=== PATIENT | female | born 1990 | race Caucasian/White ===

== ENCOUNTER 2020-08-17 15:52 | Emergency (ER) | payer OTHER ==
[~2020-08-17] VITALS: Ht 172.7 cm; Wt 99.1 kg
--- NOTE | 2020-08-17 16:43 | PHYS DOC ---
Past History Past Medical History: Asthma, High Cholesterol, Hypothyroid, IBS, Migraines, Other (MtHFR GENE MUTATION) Additional Past Medical Histor: PCOS, DVT - LEFT KNEE, SOFI'S Past Surgical History: Other Additional Past Surgical Histo: DENTAL Alcohol Use: None Adult General Chief Complaint Chief Complaint: HEADACHE HPI HPI Patient is a 29-year-old female presenting for headache. This is an acute on chronic issue for her. She is well-established in outpatient setting with primary care physician and neurologist. Has history of migraine with atypical features. Reports current headache feels different than past, started approximately 12 hours ago and described as a "thunderclap" headache that started without any prodromal symptoms. This is been ongoing for past 12 hours and getting worse and worse. She has history of DVT and was on previous anticoagulation, states she "I think I have the MTHFR gene mutation" but is not on any anticoagulation currently. She has prior head imaging such as CT and MRI with no known aneurysms or any other notable abnormalities. States headache is all over but maximum area of intensity is right occiput and temporal regions. She has nondescript vision changes. No recent fever, chills, travel, chest pain, shortness of breath, abdominal pain, bladder or bowel incontinence, no motor or sensory function changes, no neuro deficits Review of Systems Review of Systems Fourteen body systems of review of systems have been reviewed. See HPI for pertinent positives and negative responses, other fajardo all other systems are negative, non-pertinent or non-contributory Allergies Allergies Allergies Coded Allergies Type Severity Reaction Last Updated Verified buspirone Allergy Intermediate Hives 08/17/20 Yes clonazepam Allergy Intermediate Hives 08/17/20 Yes metoprolol Allergy Intermediate Hives 08/17/20 Yes propranolol Allergy Intermediate Hives 08/17/20 Yes venlafaxine Allergy Intermediate Hives 08/17/20 Yes Physical Exam Physical Exam Constitutional: Well developed, well nourished, no acute distress, non-toxic appearance. HENT: Normocephalic, atraumatic, bilateral external ears normal, oropharynx moist, no oral exudates, nose normal. Eyes: PERRLA, EOMI, conjunctiva normal, no discharge. Neck: Normal range of motion, no tenderness, supple, no stridor. Cardiovascular: Heart rate regular, sinus rhythm, no murmurs rubs or gallops Lungs & Thorax: Bilateral breath sounds clear to auscultation Abdomen: Bowel sounds normal, soft, no tenderness, no masses, no pulsatile masses. Nonsurgical abdomen, no peritoneal signs Skin: Warm, dry, no erythema, no rash. Back: No tenderness, no CVA tenderness. Extremities: No tenderness, no cyanosis, no clubbing, ROM intact, no edema. Neurologic: Alert and oriented X 3, cranial nerves II through XII intact, gait unremarkable, normal motor & sensory function, no focal deficits noted. Psychologic: Affect normal, judgement normal, mood normal. Current Patient Data Vital Signs Vital Signs Date Time Temp Pulse Resp B/P (MAP) Pulse Ox O2 Delivery O2 Flow Rate FiO2 08/17/20 16:09 97.8 90 14 123/67 (85) 100 08/17/20 16:03 Room Air Lab Results Laboratory Tests Test 08/17/20 16:35 08/17/20 16:50 Bedside Urine HCG, Qualitative hcg negative White Blood Count 7.9 x10^3/uL Red Blood Count 4.84 x10^6/uL Hemoglobin 14.1 g/dL Hematocrit 42.5 % Mean Corpuscular Volume 88 fL Mean Corpuscular Hemoglobin 29 pg Mean Corpuscular Hemoglobin Concent 33 g/dL Red Cell Distribution Width 13.4 % Platelet Count 244 x10^3/uL Neutrophils (%) (Auto) 59 % Lymphocytes (%) (Auto) 32 % Monocytes (%) (Auto) 6 % Eosinophils (%) (Auto) 3 % Basophils (%) (Auto) 1 % Neutrophils # (Auto) 4.6 x10^3uL Lymphocytes # (Auto) 2.5 x10^3/uL Monocytes # (Auto) 0.5 x10^3/uL Eosinophils # (Auto) 0.2 x10^3/uL Basophils # (Auto) 0.0 x10^3/uL Sodium Level 137 mmol/L Potassium Level 3.9 mmol/L Chloride Level 102 mmol/L Carbon Dioxide Level 28 mmol/L Anion Gap 7 Blood Urea Nitrogen 7 mg/dL Creatinine 0.8 mg/dL Estimated GFR (Cockcroft-Gault) 84.8 BUN/Creatinine Ratio 9 Glucose Level 88 mg/dL Calcium Level 9.2 mg/dL Total Bilirubin 1.2 mg/dL Aspartate Amino Transf (AST/SGOT) 30 U/L Alanine Aminotransferase (ALT/SGPT) 72 U/L Alkaline Phosphatase 63 U/L Troponin I Quantitative < 0.017 ng/mL Total Protein 7.9 g/dL Albumin 4.3 g/dL Albumin/Globulin Ratio 1.2 Current Medications Medications (Trade) Dose Ordered Sig/Ruth Route PRN Reason Start Time Stop Time Status Last Admin Dose Admin Iohexol (Omnipaque 350 Mg/ml) 100 ml 1X ONCE IV 08/17/20 16:45 08/17/20 16:47 DC 08/17/20 16:53 Ketorolac Tromethamine (Toradol 15mg Vial) 15 mg 1X ONCE IVP 08/17/20 18:00 08/17/20 18:01 DC 08/17/20 18:05 EKG EKG [] Radiology/Procedures Radiology/Procedures Exam: CTA head INDICATION: Tender clap headache TECHNIQUE: Sequential axial images through the head obtained following the administration of 75 mL of Isovue-370 IV contrast. Sagittal and coronal reformatted images were reconstructed from the axial data and reviewed. 3-D reformatted images were reconstructed from the axial data and reviewed. Comparisons: CT head without contrast same day FINDINGS: Right internal carotid artery is patent without evidence of stenosis, occlusion or aneurysm. Right MCA is patent. Right PEDRO is patent. Left internal carotid artery is patent without evidence of stenosis, occlusion or aneurysm. Left MCA is patent. Left PEDRO is patent. Basilar artery is patent without evidence of stenosis, occlusion or aneurysm. supervisor precision optical elements are patent bilaterally. IMPRESSION: Patent intracranial arterial vasculature without evidence of stenosis, occlusion or aneurysm. Exposure: One or more of the following in the visualized dose reduction techniques were utilized for this examination: 1. Automated exposure control 2. Adjustment of the MA and/or KV according to patient size 3. Use of iterative of reconstructive technique Electronically signed by: Keith Dorsey MD (08/17/2020 5:16 PM) [facility] //////////////////// Exam: CT head INDICATION: Thunderclap headache TECHNIQUE: Sequential axial images through the head were obtained without the administration of IV contrast. Comparisons: None FINDINGS: No focal parenchymal lesion or hemorrhage is identified. There is no midline shift or sulcal effacement. No acute vascular territory infarction is identified. Miner-white distinction is preserved. The ventricular system is within normal limits without compression hydrocephalus. The basal cisterns are well maintained. The visualized portions of the paranasal sinuses and mastoid air cells are well-pneumatized. No acute fractures. IMPRESSION: No acute intracranial abnormality. Exposure: One or more of the following in the visualized dose reduction techniques were utilized for this examination: 1. Automated exposure control 2. Adjustment of the MA and/or KV according to patient size Use of iterative of reconstructive technique Electronically signed by: Keith Dorsey MD (08/17/2020 5:11 PM) [facility] Heart Score C/O Chest Pain: No HEART Score for Chest Pain: HEART Score for Chest Pain Response (Comments) Value History Slighlty/Non-Suspicious 0 Age < 45 0 Risk Factors No Risk Factors 0 Total 0 Risk Factors: Risk Factors: DM, Current or recent (<one month) smoker, HTN, HLP, family history of CAD, obesity. Risk Scores: Risk Factors: DM, Current or recent (<one month) smoker, HTN, HLP, family history of CAD, obesity. Course & Med Decision Making Course & Med Decision Making Hemodynamically stable patient with HPI concerning for SAH versus other intracranial abnormality. Physical examination grossly unremarkable. Comprehensive ER work-up obtained and grossly unremarkable Disclosed entirety of ER course with patient. Patient states that she just wanted "reassurance "by visit today. She has visit with neurologist this upcom ing week to reevaluate her ongoing headaches and for continued outpatient care and intervention as indicated Patient requesting Toradol shot as this is helped prior headaches, this was administered IV. Also offered patient a short dose Medrol steroid pack for headache relief, I feel this is appropriate as patient has allergies to other medications that would be used for abortive therapy. She does not want to stay any longer for any IV fluid rehydration or other ER modalities As such, strict return precautions were discussed with good understanding by patient, all questions and concerns addressed prior to ER departure Dragon Disclaimer Dragon Disclaimer This electronic medical record was generated, in whole or in part, using a voice recognition dictation system. Departure Departure: Impression: Primary Impression: Headache Disposition: 01 DC HOME SELF CARE/HOMELESS Condition: STABLE Referrals: ASTER PHELPS MD (PCP) Patient Instructions: General Headache Without Cause Additional Instructions: You were seen for a headache. Your symptoms improved with an NSAID. You are also given a prescription for short-term steroid use in outpatient setting. As discussed, you need to follow-up with your neurologist in outpatient setting for repeat evaluation. There might be consideration for preventative/prophylactic medications for your migraine with atypical features. You should return to the ED if you develop worsening pain, vision change, numbness, tingling, weakness, vomiting, fever, neck pain, or any other new or concerning symptoms. Scripts Methylprednisolone (MEDROL) 4 Mg Tab.ds.pk 1 PKG PO UD for migraine, #1 PKG Prov: ELIF AHMADI DO 08/17/20 ELIF AHMADI DO Aug 17, 2020 16:43
[2020-08-17] MEDS ORDERED: IOHEXOL 350 MG/ML 100 ML VIAL. IV ONE (16:45)
--- NOTE | 2020-08-17 17:14 | RAD ---
Exam: CT head INDICATION: Thunderclap headache TECHNIQUE: Sequential axial images through the head were obtained without the administration of IV co ntrast. Comparisons: None FINDINGS: No focal parenchymal lesion or hemorrhage is identified. There is no midline shift or sulcal effaceme nt. No acute vascular territory infarction is identified. Miner-white distinction is preserved. The ventricular system is within normal limits without compression hydrocephalus. The basal cisterns are well maintained. The visualized portions of the paranasal sinuses and mastoid air cells are well-pneumatized. No acute fractures. IMPRESSION: No acute intracranial abnormality. Exposure: One or more of the following in the visualized dose reduction techniques were utilized for this examination: 1. Automated exposure control 2. Adjustment of the MA and/or KV according to patient size Use of iterative of reconstructive technique Electronically signed by: Keith Dorsey MD (08/17/2020 5:11 PM) [facility]
--- NOTE | 2020-08-17 17:18 | RAD ---
Exam: CTA head INDICATION: Tender clap headache TECHNIQUE: Sequential axial images through the head obtained following the administration of 75 mL of Isovue-370 IV contrast. Sagittal and coronal reformatted images were reconstructed from the axial da ta and reviewed. 3-D reformatted images were reconstructed from the axial data and reviewed. Comparisons: CT head without contrast same day FINDINGS: Right internal carotid artery is patent without evidence of stenosis, occlusion or aneurysm. Right MC A is patent. Right PEDRO is patent. Left internal carotid artery is patent without evidence of stenosis, occlusion or aneurysm. Left MCA is patent. Left PEDRO is patent. Basilar artery is patent without evidence of stenosis, occlusion or aneurysm. training technician are patent bilater ally. IMPRESSION: Patent intracranial arterial vasculature without evidence of stenosis, occlusion or aneurysm. Exposure: One or more of the following in the visualized dose reduction techniques were utilized for this examination: 1. Automated exposure control 2. Adjustment of the MA and/or KV according to patient size 3. Use of iterative of reconstructive technique Electronically signed by: Keith Dorsey MD (08/17/2020 5:16 PM) [facility]
[2020-08-17 17:31] LABS: BASO % 1 % (0-3); CALCIUM 9.2 mg/dL (8.5-10.1); CREATININE 0.8 mg/dL (0.6-1.0); EOS # 0.2 x10^3/uL (0.0-0.7); EOS % 3 % (0-3); GFR 84.8; HEMATOCRIT 42.5 % (36.0-47.0); HEMOGLOBIN 14.1 g/dL (12.0-15.5); LYMPH # 2.5 x10^3/uL (1.0-4.8); LYMPH % 32 % (24-48); MEAN CORPUSCULAR HEMOGLOBIN 29 pg (25-35); MEAN CORPUSCULAR HGB CONC 33 g/dL (31-37); MEAN CORPUSCULAR VOLUME 88 fL (79-100); MONO # 0.5 x10^3/uL (0.0-1.1); MONO % 6 % (0-9); NEUT # 4.6 x10^3uL (1.8-7.7); NEUT % 59 % (31-73); PLATELET COUNT 244 x10^3/uL (140-400); POTASSIUM 3.9 mmol/L (3.5-5.1); RED BLOOD COUNT 4.84 x10^6/uL (3.50-5.40); RED CELL DISTRIBUTION WIDTH 13.4 % (11.5-14.5); WHITE BLOOD COUNT 7.9 x10^3/uL (4.0-11.0)
[2020-08-17 17:36] LABS: ALBUMIN 4.3 g/dL (3.4-5.0); ALBUMIN/GLOBULIN RATIO 1.2 (1.0-1.7); TOTAL BILIRUBIN 1.2 mg/dL (0.2-1.0); TOTAL PROTEIN 7.9 g/dL (6.4-8.2)
[2020-08-17] MEDS ORDERED: KETOROLAC 15 MG/ML VIAL. IVP ONE (18:00)
[2020-08-17] MEDS ORDERED: METH4TAB2 PO (18:04)
[2020-08-17 18:14] VITALS: BP 108/68
--- NOTE | 2020-08-17 19:32 | EKG ---
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
[2020-08-18] MEDS ORDERED: atenolol (23:46)
[2020-08-18] MEDS ORDERED: loratadine (23:46)
[2020-08-18] MEDS ORDERED: protonix (23:46)
[2020-08-18] MEDS ORDERED: xanax (23:46)
== END 2020-08-17 18:14 | disposition home or self-care (01) ==
LOC: ER 15:52
DX: G43.909 Migraine, unspecified, not intractable, without status migrainosus (principal); J45.909 Unspecified asthma, uncomplicated; E78.00 Pure hypercholesterolemia, unspecified; E03.9 Hypothyroidism, unspecified; K58.9 Irritable bowel syndrome, unspecified; Z88.1 Allergy status to other antibiotic agents; Z88.8 Allergy status to other drugs, medicaments and biological substances
CPT/HCPCS: 36415; 70450; 70496; 80053; 81025; 84484; 85025; 93005; 96374; 99285; J1885; Q9967

== ENCOUNTER 2020-08-18 23:33 | Emergency (ER) | payer OTHER ==
[~2020-08-18] VITALS: Ht 167.6 cm; Wt 99.7 kg
[~2020-08-18 23:33] MED LIST: METH4TAB2 PO
[2020-08-18] MEDS ORDERED: loratadine (23:46)
[2020-08-18] MEDS ORDERED: atenolol (23:46)
[2020-08-18] MEDS ORDERED: xanax (23:46)
[2020-08-18] MEDS ORDERED: protonix (23:46)
[2020-08-19 00:30] LABS: BACTERIA,URINE FEW /HPF (0-FEW); BILIRUBIN,URINE NEG (NEG); CLARITY,URINE CLEAR; COLOR,URINE YELLOW; GLUCOSE,URINE NEG (NEG); NITRITE,URINE NEG (NEG); RBC,URINE 0 /HPF (0-2); SQUAMOUS EPITHELIAL CELL,UR OCC /LPF; UROBILINOGEN,URINE 0.2 mg/dL (0.2 mg/dL); WBC,URINE OCC /HPF (0-4)
--- NOTE | 2020-08-19 00:57 | PHYS DOC ---
Past History Past Medical History: Asthma, High Cholesterol, Hypothyroid, IBS, Migraines, Other Additional Past Medical Histor: PCOS, DVT - LEFT KNEE, SOFI'S Past Surgical History: Other Additional Past Surgical Histo: DENTAL Alcohol Use: None Adult General Chief Complaint Chief Complaint: MULTIPLE COMPLAINTS HPI HPI Patient is an 18-year-old female who presents to emergency department with a chief complaint of fevers at home and feeling funny. States he was in the emergency department yesterday with a headache, as her neurologist told her to come to the emergency department with her headache. Stated she got the feeling better while in the ED and was discharged home. States she called her neurologist today to update on her CT angiography of head and neck that was reassuring. States that today she was coming into the emergency department because she think she had a fever at home, because she felt warm but did not actually measure her temperature. States that she just felt weird but could not elaborate. Denies any new onset headaches, changes in vision, chest pain, shortness of breath, abdominal pain, nausea, vomiting, dysuria, hematuria or blood in the stool. Denies any recent travel, measured fevers, known ill contacts. Denies any numbness/weakness/tingling or inability to ambulate. Review of Systems Review of Systems Review of systems otherwise unremarkable except noted in HPI Allergies Allergies Allergies Coded Allergies Type Severity Reaction Last Updated Verified buspirone Allergy Intermediate Hives 08/17/20 Yes clonazepam Allergy Intermediate Hives 08/17/20 Yes metoclopramide Allergy Intermediate 08/18/20 Yes metoprolol Allergy Intermediate Hives 08/17/20 Yes propranolol Allergy Intermediate Hives 08/17/20 Yes venlafaxine Allergy Intermediate Hives 08/17/20 Yes Physical Exam Physical Exam Constitutional: Well developed, well nourished, no acute distress, non-toxic appearance. [] HENT: Normocephalic, atraumatic, bilateral external ears normal, oropharynx moist, no oral exudates, nose normal. [] Eyes: conjunctiva normal, no discharge. [] Neck: Normal range of motion, Cardiovascular:Heart rate regular rhythm, no murmur [] Lungs & Thorax: Bilateral breath sounds clear to auscultation [] Abdomen: soft,no tenderness no masses, no pulsatile masses. [] Skin: Warm, dry, no erythema, no rash. [] Back: , no CVA tenderness. [] Extremities: No tenderness, no cyanosis, no clubbing, ROM intact, no edema. [] Neurologic: Alert and oriented X 3, normal motor function, normal sensory function, no focal deficits noted. [] Psychologic: Affect normal, judgement normal, mood normal. [] Current Patient Data Lab Results Laboratory Tests Test 08/18/20 23:49 08/18/20 23:57 Urine Collection Type Unknown Urine Color Yellow Urine Clarity Clear Urine pH 5.5 Urine Specific [place] 1.015 Urine Protein Neg (NEG-TRACE) Urine Glucose (UA) Neg mg/dL (NEG) Urine Ketones (Stick) Neg mg/dL (NEG) Urine Blood Neg (NEG) Urine Nitrite Neg (NEG) Urine Bilirubin Neg (NEG) Urine Urobilinogen Dipstick 0.2 mg/dL (0.2 mg/dL) Urine Leukocyte Esterase Neg (NEG) Urine RBC 0 /HPF (0-2) Urine WBC Occ /HPF (0-4) Urine Squamous Epithelial Cells Occ /LPF Urine Bacteria Few /HPF (0-FEW) Troponin I Quantitative < 0.017 ng/mL (0-0.055) EKG EKG [] Radiology/Procedures Radiology/Procedures [] Heart Score C/O Chest Pain: No Risk Factors: Risk Factors: DM, Current or recent (<one month) smoker, HTN, HLP, family history of CAD, obesity. Risk Scores: Risk Factors: DM, Current or recent (<one month) smoker, HTN, HLP, family history of CAD, obesity. Course & Med Decision Making Course & Med Decision Making [] Dragon Disclaimer Dragon Disclaimer This electronic medical record was generated, in whole or in part, using a voice recognition dictation system. Departure Departure: Impression: Primary Impression: Fatigue Additional Impression: Lightheadedness Disposition: 01 DC HOME SELF CARE/HOMELESS Condition: GOOD Referrals: ASTER PHELPS MD (PCP) Patient Instructions: Fatigue, Migraine Headache Additional Instructions: Please read all the attached information carefully. You can use Tylenol, ibuprofen and Benadryl at home as needed for migraine control. Please call your primary care physician first thing Thursday morning to update on ED visit and set up a follow-up as needed. Please come back to the ED immediately with new or concerning symptoms. Problem Qualifiers LUPILLO DUBON MD Aug 19, 2020 00:57
[2020-08-19 01:15] VITALS: BP 113/71
--- NOTE | 2020-08-19 03:21 | EKG ---
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
== END 2020-08-19 01:33 | disposition home or self-care (01) ==
LOC: ER 23:33
DX: R53.83 Other fatigue (principal); R42 Dizziness and giddiness; R50.9 Fever, unspecified; G43.909 Migraine, unspecified, not intractable, without status migrainosus; J45.909 Unspecified asthma, uncomplicated; E78.00 Pure hypercholesterolemia, unspecified; E03.9 Hypothyroidism, unspecified; K58.9 Irritable bowel syndrome, unspecified; Z86.718 Personal history of other venous thrombosis and embolism; Z88.8 Allergy status to other drugs, medicaments and biological substances
CPT/HCPCS: 36415; 81001; 84484; 93005; 99284

== ENCOUNTER 2020-09-06 04:00 | Emergency (ER) | payer OTHER ==
[~2020-09-06] VITALS: Ht 167.6 cm; Wt 99.7 kg
[~2020-09-06 04:00] MED LIST changes: +atenolol; +loratadine; +protonix; +xanax
--- NOTE | 2020-09-06 04:23 | EKG ---
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
--- NOTE | 2020-09-06 04:24 | PHYS DOC ---
Past History Past Medical History: Anxiety, Asthma, DVT, GERD, High Cholesterol, Hypothyroid, IBS, Migraines, Other Additional Past Medical Histor: PCOS, SOFI'S Past Surgical History: Other Additional Past Surgical Histo: DENTAL Alcohol Use: None General Adult EDM: Chief Complaint: CHEST PAIN HPI: HPI: 29-year-old female presents with chest pain and left foot tingling. Patient states that she has been having central chest pressure since 10:30 PM last night, 6 hours ago. The chest pain is moderate in intensity and constant. She was not doing anything when it started. She denies shortness of breath. She also tells me that she has been having pain and tingling in her left foot for the last 2 days. Patient has a history of DVT in the past when she was on control and was a smoker. The patient had a recent echocardiogram which was reported to be normal. Review of Systems: Review of Systems: Constitutional: Denies fever or chills Eyes: Denies change in visual acuity HENT: Denies nasal congestion or sore throat Respiratory: Denies cough or shortness of breath Cardiovascular: Chest pain GI: Denies abdominal pain, nausea, vomiting, bloody stools or diarrhea : Denies dysuria Musculoskeletal: Left lower leg pain Integument: Denies rash Neurologic: Denies headache, focal weakness or sensory changes Endocrine: Denies polyuria or polydipsia Lymphatic: Denies swollen glands Psychiatric: Denies depression or anxiety Allergies: Allergies: Allergies Coded Allergies Type Severity Reaction Last Updated Verified buspirone Allergy Intermediate Hives 08/17/20 Yes clonazepam Allergy Intermediate Hives 08/17/20 Yes metoclopramide Allergy Intermediate 08/18/20 Yes metoprolol Allergy Intermediate Hives 08/17/20 Yes propranolol Allergy Intermediate Hives 08/17/20 Yes venlafaxine Allergy Intermediate Hives 08/17/20 Yes Physical Exam: PE: Constitutional: Well developed, well nourished, obese, no acute distress, non- toxic appearance. [] HENT: Normocephalic, atraumatic, bilateral external ears normal, oropharynx moist, no oral exudates, nose normal. [] Eyes: PERRLA, EOMI, conjunctiva normal, no discharge. [] Neck: Normal range of motion, no tenderness, supple, no stridor. [] Cardiovascular: Heart rate 89, regular rhythm, no murmur [] Lungs & Thorax: Bilateral breath sounds clear to auscultation [] Abdomen: Bowel sounds normal, soft, no tenderness, no masses, no pulsatile masses. [] Skin: Warm, dry, no erythema, no rash. [] Back: No tenderness, no CVA tenderness. [] Extremities: No tenderness, no cyanosis, no clubbing, ROM intact, no edema. [] Neurologic: Alert and oriented X 3, normal motor function, normal sensory function, no focal deficits noted. [] Psychologic: Affect normal, judgement normal, mood concerned. [] Current Patient Data: Vital Signs: Vital Signs Date Time Temp Pulse Resp B/P (MAP) Pulse Ox O2 Delivery O2 Flow Rate FiO2 09/06/20 04:00 98.2 93 18 134/87 (103) 100 Room Air EKG: EKG: Sinus rhythm, rate 89, normal axis, no ST elevations or depressions. [] Radiology/Procedures: Radiology/Procedures: [] Impressions: Left lower extremity venous Doppler dated 09/06/2020. No comparison available. CLINICAL INDICATION: Calf pain. FINDINGS: Grayscale, color-flow and spectral waveform analysis performed to include the deep venous system of the left lower extremity. There is normal compressibility, phasicity and augmentation of flow throughout. No filling defects are seen. IMPRESSION: No evidence of left lower extremity deep vein thrombosis. Electronically signed by: Jacob Smiley MD (09/06/2020 5:48 AM) [facility] [place] DICTATED AND SIGNED BY: JACOB SMILEY MD DATE: 09/06/20 0548 CC: GAURAV DURÁN DO; ASTER PHELPS MD ~MTH0 0 Heart Score: C/O Chest Pain: Yes HEART Score for Chest Pain: HEART Score for Chest Pain Response (Comments) Value History Slighlty/Non-Suspicious 0 ECG Normal 0 Age < 45 0 Risk Factors 1 or 2 Risk Factors 1 Troponin < Normal Limit 0 Total 1 Risk Factors: Risk Factors: DM, Current or recent (<one month) smoker, HTN, HLP, family history of CAD, obesity. Risk Scores: Score 0 - 3: 2.5% MACE over next 6 weeks - Discharge Home Score 4 - 6: 20.3% MACE over next 6 weeks - Admit for Clinical Observation Score 7 - 10: 72.7% MACE over next 6 weeks - Early Invasive Strategies Course & Med Decision Making: Course & Med Decision Making Pertinent Labs and Imaging studies reviewed. (See chart for details) The patient's labs are unremarkable. Her EKG is unremarkable. Her troponin is negative. Her lower extremity ultrasound is negative for DVT. Her chest x-ray is unremarkable. The patient's chest pain does not appear to be cardiopulmonary in nature. She does not appear to have any life-threatening illness at this time. I have advised that she follow-up with her primary care physician for her leg pain and other potential causes for chest pain. She is stable for discharge at this time. [] Dragon Disclaimer: Dragon Disclaimer: This electronic medical record was generated, in whole or in part, using a voice recognition dictation system. Departure Departure: Impression: Primary Impression: Chest pain Qualified Codes: R07.89 - Other chest pain Additional Impression: Left leg pain Disposition: HOME / SELF CARE / HOMELESS Condition: STABLE Referrals: ASTER PHELPS MD (PCP) Patient Instructions: Chest Pain (Nonspecific), [id number] GAURAV DURÁN DO Sep 06, 2020 04:24
[2020-09-06 04:28] LABS: BASO # 0.1 x10^3/uL (0.0-0.2); BASO % 1 % (0-3); EOS # 0.2 x10^3/uL (0.0-0.7); EOS % 2 % (0-3); HEMOGLOBIN 13.2 g/dL (12.0-15.5); LYMPH # 3.3 x10^3/uL (1.0-4.8); LYMPH % 34 % (24-48); MEAN CORPUSCULAR HEMOGLOBIN 30 pg (25-35); MEAN CORPUSCULAR HGB CONC 34 g/dL (31-37); MEAN CORPUSCULAR VOLUME 87 fL (79-100); MONO # 0.6 x10^3/uL (0.0-1.1); MONO % 6 % (0-9); NEUT # 5.6 x10^3uL (1.8-7.7); NEUT % 57 % (31-73); PLATELET COUNT 262 x10^3/uL (140-400); RED BLOOD COUNT 4.47 x10^6/uL (3.50-5.40); WHITE BLOOD COUNT 9.8 x10^3/uL (4.0-11.0)
[2020-09-06 04:36] LABS: CALCIUM 8.9 mg/dL (8.5-10.1); CREATININE 0.7 mg/dL (0.6-1.0); GFR 98.9; POTASSIUM 3.5 mmol/L (3.5-5.1)
[2020-09-06 04:42] LABS: ALBUMIN 3.9 g/dL (3.4-5.0); TOTAL BILIRUBIN 0.8 mg/dL (0.2-1.0); TOTAL PROTEIN 7.8 g/dL (6.4-8.2)
[2020-09-06 05:00] LABS: BACTERIA,URINE 0 /HPF (0-FEW); BILIRUBIN,URINE NEG (NEG); CLARITY,URINE CLEAR; COLOR,URINE YELLOW; GLUCOSE,URINE NEG (NEG); NITRITE,URINE NEG (NEG); RBC,URINE 0 /HPF (0-2); SQUAMOUS EPITHELIAL CELL,UR MOD /LPF; UROBILINOGEN,URINE 0.2 mg/dL (0.2 mg/dL); WBC,URINE OCC /HPF (0-4)
[2020-09-06 05:03] LABS: BARBITURATES NEG (NEG); BENZODIAZEPINES POS (NEG); CANNABINOIDS NEG (NEG); COCAINE NEG (NEG); METHADONE NEG (NEG); OPIATES NEG (NEG); PHENCYCLIDINE NEG (NEG)
[2020-09-06 05:08] LABS: AMPHETAMINE/METHAMPHETAMINE NEG (NEG)
--- NOTE | 2020-09-06 05:51 | RAD ---
Left lower extremity venous Doppler dated 09/06/2020. No comparison available. CLINICAL INDICATION: Calf pain. FINDINGS: Grayscale, color-flow and spectral waveform analysis performed to include the deep venous system of t he left lower extremity. There is normal compressibility, phasicity and augmentation of flow througho ut. No filling defects are seen. IMPRESSION: No evidence of left lower extremity deep vein thrombosis. Electronically signed by: Jacob Smiley MD (09/06/2020 5:48 AM) [facility]
--- NOTE | 2020-09-06 06:29 | RAD ---
Single view chest dated 09/06/2020: No comparison available. Clinical Indication: Chest pain. Findings: Single upright portable exam of the chest was performed. Heart size and mediastinal contours are with in normal limits. Lungs are clear. No consolidation or pleural effusion. No pneumothorax. Impression:: No acute radiographic abnormality. Electronically signed by: Jacob Smiley MD (09/06/2020 6:27 AM) [facility]
[2020-09-06 06:38] VITALS: BP 127/77
== END 2020-09-06 06:35 | disposition home or self-care (01) ==
LOC: ER 04:00
DX: R07.89 Other chest pain (principal); M79.662 Pain in left lower leg; R20.2 Paresthesia of skin; J45.909 Unspecified asthma, uncomplicated; K21.9 Gastro-esophageal reflux disease without esophagitis; E78.00 Pure hypercholesterolemia, unspecified; E03.9 Hypothyroidism, unspecified; K58.9 Irritable bowel syndrome, unspecified; G43.909 Migraine, unspecified, not intractable, without status migrainosus; Z86.718 Personal history of other venous thrombosis and embolism; Z88.8 Allergy status to other drugs, medicaments and biological substances
CPT/HCPCS: 36415; 71045; 80053; 80307; 81001; 81025; 84484; 85025; 93005; 93971; 99285

== ENCOUNTER 2020-09-24 22:12 | Emergency (ER) | payer OTHER ==
[~2020-09-24] VITALS: Ht 167.6 cm; Wt 96.7 kg
--- NOTE | 2020-09-24 22:41 | PHYS DOC ---
Past History Past Medical History: Anxiety, Asthma, GERD, High Cholesterol, Hypothyroid, IBS, Migraines, Other Additional Past Medical Histor: PCOS, SOFI'S Past Surgical History: Other Additional Past Surgical Histo: DENTAL Alcohol Use: None Adult General Chief Complaint Chief Complaint: CHEST PAIN HPI HPI Patient is a 29-year-old female presenting for chest pain.Reports she had similar diffuse feelings of chest pain that arose while at rest approximately 2 weeks ago, went to [facility] emergency room and had comprehensive work-up that was grossly negative. She is concerned because she was told her D-dimer was "one-point off needing a CT scan" and that her liver enzymes were elevated. She has not followed up in the outpatient setting since then. Reports recurrence of chest pain this evening while at rest. She is concerned about recent findings. She has a pearler and has had provocative cardiac testing in outpatient setting, she is scheduled to see them this upcoming Thursday and have loop recorder inserted for monitoring purposes. Nothing known makes chest pain better or worse. Described as overall tightness without radiation to other portions of body. Pain has been constant since onset. Review of Systems Review of Systems Fourteen body systems of review of systems have been reviewed. See HPI for pertinent positives and negative responses, other fajardo all other systems are negative, non-pertinent or non-contributory Allergies Allergies Allergies Coded Allergies Type Severity Reaction Last Updated Verified buspirone Allergy Intermediate Hives 09/24/20 Yes clonazepam Allergy Intermediate Hives 09/24/20 Yes metoclopramide Allergy Intermediate 09/24/20 Yes metoprolol Allergy Intermediate Hives 09/24/20 Yes propranolol Allergy Intermediate Hives 09/24/20 Yes venlafaxine Allergy Intermediate Hives 09/24/20 Yes Physical Exam Physical Exam Constitutional: Well developed, well nourished, no acute distress, non-toxic appearance. HENT: Normocephalic, atraumatic, bilateral external ears normal, oropharynx moist, no oral exudates, nose normal. Eyes: PERRLA, EOMI, conjunctiva normal, no discharge. Neck: Normal range of motion, no tenderness, supple, no stridor. Cardiovascular: Heart rate regular, sinus rhythm, no murmurs rubs or gallops Lungs & Thorax: Bilateral breath sounds clear to auscultation Abdomen: Bowel sounds normal, soft, no tenderness, no masses, no pulsatile masses. Nonsurgical abdomen, no peritoneal signs Skin: Warm, dry, no erythema, no rash. Back: No tenderness, no CVA tenderness. Extremities: No tenderness, no cyanosis, no clubbing, ROM intact, no edema. Negative Homans' sign to bilateral lower extremities, bilateral lower extremities equal size Neurologic: Alert and oriented X 3, grossly normal motor & sensory function, no focal deficits noted. Psychologic: Odd affect, judgement normal, mood normal. Current Patient Data Vital Signs Vital Signs Date Time Temp Pulse Resp B/P (MAP) Pulse Ox O2 Delivery O2 Flow Rate FiO2 09/24/20 22:27 97.7 98 18 130/77 (94) 100 Room Air Lab Results Laboratory Tests Test 09/24/20 22:40 White Blood Count 8.0 x10^3/uL Red Blood Count 4.70 x10^6/uL Hemoglobin 13.6 g/dL Hematocrit 41.0 % Mean Corpuscular Volume 87 fL Mean Corpuscular Hemoglobin 29 pg Mean Corpuscular Hemoglobin Concent 33 g/dL Red Cell Distribution Width 13.4 % Platelet Count 242 x10^3/uL Neutrophils (%) (Auto) 60 % Lymphocytes (%) (Auto) 31 % Monocytes (%) (Auto) 5 % Eosinophils (%) (Auto) 3 % Basophils (%) (Auto) 1 % Neutrophils # (Auto) 4.8 x10^3uL Lymphocytes # (Auto) 2.5 x10^3/uL Monocytes # (Auto) 0.4 x10^3/uL Eosinophils # (Auto) 0.2 x10^3/uL Basophils # (Auto) 0.0 x10^3/uL D-Dimer (Alessandra) 0.19 mg/L Sodium Level 140 mmol/L Potassium Level 3.8 mmol/L Chloride Level 105 mmol/L Carbon Dioxide Level 27 mmol/L Anion Gap 8 Blood Urea Nitrogen 8 mg/dL Creatinine 0.9 mg/dL Estimated GFR (Cockcroft-Gault) 74.0 BUN/Creatinine Ratio 9 Glucose Level 131 mg/dL Calcium Level 9.3 mg/dL Total Bilirubin 0.4 mg/dL Aspartate Amino Transf (AST/SGOT) 29 U/L Alanine Aminotransferase (ALT/SGPT) 61 U/L Alkaline Phosphatase 70 U/L Troponin I Quantitative < 0.017 ng/mL Total Protein 7.7 g/dL Albumin 3.7 g/dL Albumin/Globulin Ratio 0.9 Current Medications Medications (Trade) Dose Ordered Sig/Ruth Route PRN Reason Start Time Stop Time Status Last Admin Dose Admin Aspirin (Fausto Aspirin) 325 mg 1X ONCE PO 09/24/20 22:45 09/24/20 22:46 DC 09/24/20 22:49 EKG EKG EKG ordered and interpreted by myself at 2222 hrs. as sinus rhythm at 96 bpm, unremarkable intervals, no axis deviation, no acute ischemic findings EKG ordered and interpreted by myself at 2332 hrs. as sinus rhythm at 99 bpm, unremarkable intervals, no axis deviation, no acute ischemic findings, no STEMI Radiology/Procedures Radiology/Procedures [] Heart Score C/O Chest Pain: Yes HEART Score for Chest Pain: HEART Score for Chest Pain Response (Comments) Value History Slighlty/Non-Suspicious 0 ECG Normal 0 Age < 45 0 Risk Factors No Risk Factors 0 Troponin < Normal Limit 0 Total 0 Risk Factors: Risk Factors: DM, Current or recent (<one month) smoker, HTN, HLP, family history of CAD, obesity. Risk Scores: Risk Factors: DM, Current or recent (<one month) smoker, HTN, HLP, family history of CAD, obesity. Course & Med Decision Making Course & Med Decision Making Vital signs stable, HPI and physical exam grossly nonconcerning. Repeat cardiac work-up unremarkable. Reviewed heart score and unremarkable PERC score with negative D-dimer I discussed patient's symptoms and presenting history of illness is likely anxiety based. I stressed need for close outpatient follow-up to address not only for concern for ongoing chest pain but also for anxiety Strict return precautions were discussed with good understanding by patient, all questions and concerns addressed prior to ER departure Dragon Disclaimer Dragon Disclaimer This electronic medical record was generated, in whole or in part, using a voice recognition dictation system. Departure Departure: Impression: Primary Impression: Chest pain, unspecified Additional Impression: Anxiety about health Disposition: 01 HOME / SELF CARE / HOMELESS Condition: STABLE Referrals: ASTER PHELPS MD (PCP) Additional Instructions: You were seen for chest pain. Your workup did not show any acute abnormalities today, but does not indicate that you do not have underlying cardiovascular disease. You do need to follow up with your primary doctor and/or pearler for further evaluation and treatment. You need to keep your follow-up with your pearler this upcoming Thursday as I too feel you would benefit from recorder device placement. I would also discussed with your primary care physician your untreated anxiety which I feel is contributing to your ER visit today. You should return to the ED if you develop worsening chest pain, shortness of zachary ath, fever, abnormal sweating, leg swelling, or any other new or concerning symptoms. Problem Qualifiers ELIF AHMADI DO September 24, 2020 22:41
[2020-09-24] MEDS ORDERED: ASPIRIN 325 MG TABLET PO ONE (22:45)
[2020-09-24 23:10] LABS: BASO % 1 % (0-3); CALCIUM 9.3 mg/dL (8.5-10.1); CREATININE 0.9 mg/dL (0.6-1.0); EOS # 0.2 x10^3/uL (0.0-0.7); EOS % 3 % (0-3); HEMOGLOBIN 13.6 g/dL (12.0-15.5); LYMPH # 2.5 x10^3/uL (1.0-4.8); LYMPH % 31 % (24-48); MEAN CORPUSCULAR HEMOGLOBIN 29 pg (25-35); MEAN CORPUSCULAR HGB CONC 33 g/dL (31-37); MEAN CORPUSCULAR VOLUME 87 fL (79-100); MONO # 0.4 x10^3/uL (0.0-1.1); MONO % 5 % (0-9); NEUT # 4.8 x10^3uL (1.8-7.7); NEUT % 60 % (31-73); PLATELET COUNT 242 x10^3/uL (140-400); POTASSIUM 3.8 mmol/L (3.5-5.1); RED CELL DISTRIBUTION WIDTH 13.4 % (11.5-14.5)
[2020-09-24 23:19] LABS: ALBUMIN 3.7 g/dL (3.4-5.0); ALBUMIN/GLOBULIN RATIO 0.9 (1.0-1.7); TOTAL BILIRUBIN 0.4 mg/dL (0.2-1.0); TOTAL PROTEIN 7.7 g/dL (6.4-8.2)
[2020-09-24 23:46] VITALS: BP 112/82
--- NOTE | 2020-09-25 00:54 | EKG ---
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
--- NOTE | 2020-09-25 04:55 | EKG ---
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
== END 2020-09-25 00:23 | disposition home or self-care (01) ==
LOC: ER 22:12
DX: R07.9 Chest pain, unspecified (principal); F41.9 Anxiety disorder, unspecified; J45.909 Unspecified asthma, uncomplicated; K21.9 Gastro-esophageal reflux disease without esophagitis; E78.00 Pure hypercholesterolemia, unspecified; E03.9 Hypothyroidism, unspecified; K58.9 Irritable bowel syndrome, unspecified; G43.909 Migraine, unspecified, not intractable, without status migrainosus; Z88.8 Allergy status to other drugs, medicaments and biological substances
CPT/HCPCS: 36415; 80053; 84484; 85025; 85379; 93005; 99285

== ENCOUNTER 2020-11-27 18:49 | Emergency (ER) | payer OTHER ==
[~2020-11-27] VITALS: Ht 167.6 cm; Wt 96.7 kg
[2020-11-27] MEDS ORDERED: ASPIRIN 325 MG TABLET PO ONE (19:00)
[2020-11-27] MEDS ORDERED: MORPHINE SULFATE 2 MG/ML DISP.SYRIN. IV/SQ PRN (19:00)
[2020-11-27] MEDS ORDERED: NITROGLYCERIN SUBLINGUAL 0.4 MG BOTTLE OF 25. SL PRN (19:00)
--- NOTE | 2020-11-27 19:02 | PHYS DOC ---
Past History Past Medical History: Anxiety, Asthma, GERD, High Cholesterol, Hypothyroid, IBS, Migraines, Other Additional Past Medical Histor: PCOS, SOFI'S (MARK ODONNELL CEMENT CAR DUMPER) Past Surgical History: Other Additional Past Surgical Histo: DENTAL (MARK ODONNELL CEMENT CAR DUMPER) Alcohol Use: None (MARK ODONNELL CEMENT CAR DUMPER) Adult General Chief Complaint Chief Complaint: CHEST PAIN HPI HPI Patient is a 30-year-old female with history of asthma, anxiety, high cholesterol, acid reflux, SVT, who presents the ED today complaining of 8 out of 10 sharp left-sided chest pain that has been going on intermittently since midnight. Patient denies anything specifically alleviating the pain but states driving to the hospital she got anxious and the pain started radiating to her jaw and left upper extremity. Patient denies any shortness of breath. (MARK ODONNELL CEMENT CAR DUMPER) Review of Systems Review of Systems Constitutional: Denies fever or chills [] Eyes: Denies change in visual acuity, redness, or eye pain [] HENT: Denies nasal congestion or sore throat [] Respiratory: Denies cough or shortness of breath [] Cardiovascular: Reports left-sided chest pain GI: Denies abdominal pain, nausea, vomiting, bloody stools or diarrhea [] : Denies dysuria or hematuria [] Musculoskeletal: Denies back pain or joint pain [] Integument: Denies rash or skin lesions [] Neurologic: Denies headache, focal weakness or sensory changes [] All other systems were reviewed and found to be within normal limits, except as documented in this note. (MARK ODONNELL CEMENT CAR DUMPER) Allergies Allergies Allergies Coded Allergies Type Severity Reaction Last Updated Verified buspirone Allergy Intermediate Hives 09/24/20 Yes clonazepam Allergy Intermediate Hives 09/24/20 Yes metoclopramide Allergy Intermediate 09/24/20 Yes metoprolol Allergy Intermediate Hives 09/24/20 Yes propranolol Allergy Intermediate Hives 09/24/20 Yes venlafaxine Allergy Intermediate Hives 09/24/20 Yes (MARK ODONNELL CEMENT CAR DUMPER) Physical Exam Physical Exam Constitutional: Well developed, well nourished, no acute distress, non-toxic appearance. [] HENT: Normocephalic, atraumatic, bilateral external ears normal, oropharynx moist, no oral exudates, nose normal. [] Eyes: PERRLA, EOMI, conjunctiva normal, no discharge. [] Neck: Normal range of motion, no tenderness, supple, no stridor. [] Cardiovascular:Heart rate regular rhythm, no murmur [] Lungs & Thorax: Bilateral breath sounds clear to auscultation [] Abdomen: Bowel sounds normal, soft, no tenderness, no masses, no pulsatile masses. [] Skin: Warm, dry, no erythema, no rash. [] Back: No tenderness, no CVA tenderness. [] Extremities: No tenderness, no cyanosis, no clubbing, ROM intact, no edema. [] Neurologic: Alert and oriented X 3, normal motor function, normal sensory function, no focal deficits noted. [] Psychologic: Affect normal, judgement normal, mood normal. [] (MARK ODONNELL APRN) EKG EKG [address] Stewart sinus rhythm HR 76 no STEMI[] (MARK ODONNELL APRN) Radiology/Procedures Radiology/Procedures []PROCEDURE: PORTABLE CHEST 1V AP chest. HISTORY: Chest pain AP view was taken of the chest. Lungs are clear. Heart is normal in size. There is no pleural effusion. IMPRESSION: 1. No acute chest disease. Electronically signed by: Rahul Barron MD (11/27/2020 7:24 PM) [facility] DICTATED AND SIGNED BY: RAHUL BARRON MD DATE: 11/27/201922 CC: EMERGENCY,DEPARTMENT; ASTER PHELPS MD; MARK ODONNELL APRN ~MTH0 0 (MARK ODONNELL APRN) Heart Score C/O Chest Pain: Yes HEART Score for Chest Pain: HEART Score for Chest Pain Response (Comments) Value History Slighlty/Non-Suspicious 0 ECG Normal 0 Age < 45 0 Risk Factors 1 or 2 Risk Factors 1 Troponin < Normal Limit 0 Total 1 Risk Factors: Risk Factors: DM, Current or recent (<one month) smoker, HTN, HLP, family history of CAD, obesity. Risk Scores: Risk Factors: DM, Current or recent (<one month) smoker, HTN, HLP, family history of CAD, obesity. (MARK ODONNELL APRN) Course & Med Decision Making Course & Med Decision Making Pertinent Labs and Imaging studies reviewed. (See chart for details) This is a 30-year-old female patient presented to the ED today with complaints of left-sided chest pain that began at midnight. EKG is negative, troponin is normal. Vitals are stable. CBC CMP UA with no acute findings. Patient has been worked up multiple times for her chest pain. I recommend she follows up with her corduroy brusher operator as well as primary care doctor. (MARK ODONNELL APRN) Dragon Disclaimer Dragon Disclaimer This electronic medical record was generated, in whole or in part, using a voice recognition dictation system. (MARK ODONNELL APRN) Departure Departure: Impression: Primary Impression: Chest pain Disposition: HOME / SELF CARE / HOMELESS Condition: STABLE Referrals: ASTER PHELPS MD (PCP) Follow-up in 1 week Patient Instructions: Chest Pain (Nonspecific) Additional Instructions: You were evaluated in the emergency room, your cardiac work-up is negative for any acute findings. We highly recommend you follow-up with your corduroy brusher operator as well as primary care doctor as soon as you can Attending Signature Attending Signature I have reviewed the PA/DIGITAL MARKETING CONSULTANT's note and plan of care. I was available for consultation as needed during the patient's visit in the emergency department. I agree with the clinical impression, plan, and disposition. (MAURO STEWART DO) Problem Qualifiers Primary Impression: Chest pain Chest pain type: unspecified Qualified Codes: R07.9 - Chest pain, unspecified MARK ODONNELL APRN Nov 27, 2020 19:02 MAURO STEWART DO Nov 27, 2020 21:11
--- NOTE | 2020-11-27 19:17 | EKG ---
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
--- NOTE | 2020-11-27 19:26 | RAD ---
AP chest. HISTORY: Chest pain AP view was taken of the chest. Lungs are clear. Heart is normal in size. There i s no pleural effusion. IMPRESSION: 1. No acute chest disease. Electronically signed by: Rahul Barron MD (11/27/2020 7:24 PM) [facility]
[2020-11-27 19:44] LABS: BASO # 0.1 x10^3/uL (0.0-0.2); BASO % 1 % (0-3); EOS # 0.3 x10^3/uL (0.0-0.7); EOS % 3 % (0-3); HEMATOCRIT 40.6 % (36.0-47.0); HEMOGLOBIN 13.4 g/dL (12.0-15.5); LYMPH # 3.1 x10^3/uL (1.0-4.8); LYMPH % 35 % (24-48); MEAN CORPUSCULAR HEMOGLOBIN 28 pg (25-35); MEAN CORPUSCULAR HGB CONC 33 g/dL (31-37); MEAN CORPUSCULAR VOLUME 85 fL (79-100); MONO # 0.5 x10^3/uL (0.0-1.1); MONO % 6 % (0-9); NEUT % 56 % (31-73); PLATELET COUNT 276 x10^3/uL (140-400); RED CELL DISTRIBUTION WIDTH 13.8 % (11.5-14.5)
[2020-11-27 20:06] LABS: ANION GAP 8 (6-14); BLOOD UREA NITROGEN 8 mg/dL (7-20); BUN/CREATININE RATIO 10 (6-20); CALCIUM 8.5 mg/dL (8.5-10.1); CARBON DIOXIDE 27 mmol/L (21-32); CHLORIDE 104 mmol/L (98-107); CREATININE 0.8 mg/dL (0.6-1.0); GFR 84.2; GLUCOSE 93 mg/dL (70-99); POTASSIUM 3.8 mmol/L (3.5-5.1); SODIUM 139 mmol/L (136-145)
[2020-11-27 20:17] LABS: BILIRUBIN,URINE NEG (NEG); CLARITY,URINE CLEAR; COLOR,URINE YELLOW; GLUCOSE,URINE NEG (NEG); NITRITE,URINE NEG (NEG); UROBILINOGEN,URINE 0.2 mg/dL (0.2 mg/dL)
[2020-11-27 20:19] LABS: BACTERIA,URINE 0 /HPF (0-FEW); RBC,URINE >40 /HPF (0-2); SQUAMOUS EPITHELIAL CELL,UR FEW /LPF; WBC,URINE OCC /HPF (0-4)
[2020-11-27 20:21] LABS: ALBUMIN 3.7 g/dL (3.4-5.0); ALBUMIN/GLOBULIN RATIO 0.9 (1.0-1.7); ALK PHOS 80 U/L (46-116); ALT (SGPT) 40 U/L (14-59); AST (SGOT) 18 U/L (15-37); TOTAL BILIRUBIN 0.5 mg/dL (0.2-1.0); TOTAL PROTEIN 7.6 g/dL (6.4-8.2)
[2020-11-27 21:47] VITALS: BP 116/79
== END 2020-11-27 21:50 | disposition home or self-care (01) ==
LOC: ER 18:49
DX: R07.89 Other chest pain (principal); F41.9 Anxiety disorder, unspecified; J45.909 Unspecified asthma, uncomplicated; K21.9 Gastro-esophageal reflux disease without esophagitis; E78.00 Pure hypercholesterolemia, unspecified; E03.9 Hypothyroidism, unspecified; K58.9 Irritable bowel syndrome, unspecified; G43.909 Migraine, unspecified, not intractable, without status migrainosus; Z88.8 Allergy status to other drugs, medicaments and biological substances
CPT/HCPCS: 36415; 71045; 80053; 81001; 81025; 82553; 83735; 84443; 84484; 85025; 93005; 99285

== ENCOUNTER 2020-12-02 02:41 | Emergency (ER) | payer OTHER ==
[~2020-12-02] VITALS: Ht 167.6 cm; Wt 96.7 kg
[2020-12-02 02:52] VITALS: BP 117/81
[2020-12-02] MEDS ORDERED: KETOROLAC 30 MG/ML VIAL. IM ONE (03:00)
[2020-12-02] MEDS ORDERED: ONDANSETRON ODT 4 MG TAB.RAPDIS PO ONE (03:00)
[2020-12-02] MEDS ORDERED: PROCHLORPERAZINE 10 MG/2 ML VIAL. IM ONE (03:00)
[2020-12-02] MEDS ORDERED: diphenhydrAMINE HCL 25 MG CAPSULE PO ONE (03:00)
--- NOTE | 2020-12-02 03:29 | PHYS DOC ---
Past History Past Medical History: Anxiety, Asthma, GERD, High Cholesterol, Hypothyroid, IBS, Migraines, Other Additional Past Medical Histor: PCOS, SOFI'S Past Surgical History: Other Additional Past Surgical Histo: DENTAL Alcohol Use: None Adult General Chief Complaint Chief Complaint: HEADACHE HPI HPI Patient is a 30-year-old female with past medical history significant for migraines who presents to the emergency department with a chief complaint of migraine. States she has had a right-sided migraine, dull and achy in nature which extends from her neck all the way up to her side for about a day now. States she took her home regimen of Tylenol, ibuprofen with mild relief. Denies any photophobia, phonophobia, nausea, vomiting, changes in vision, chest pain, shortness of breath. Denies any Covid/flu/cold symptoms. Denies any numbness/weakness/tingling. Denies any trouble sitting, standing or ambulating. Review of Systems Review of Systems Review of systems otherwise unremarkable except noted in HPI Current Medications Current Medications Current Medications Medications (Trade) Dose Ordered Sig/Ruth Start Time Stop Time Status Last Admin Dose Admin Diphenhydramine HCl (Benadryl) 25 mg 1X ONCE 12/02/20 03:00 12/02/20 03:01 DC 12/02/20 03:03 25 MG Ketorolac Tromethamine (Toradol 30mg Vial) 30 mg 1X ONCE 12/02/20 03:00 12/02/20 03:02 DC 12/02/20 03:03 30 MG Ondansetron HCl (Zofran Odt) 8 mg 1X ONCE 12/02/20 03:00 12/02/20 03:01 DC 12/02/20 03:03 8 MG Prochlorperazine Edisylate (Compazine) 10 mg 1X ONCE 12/02/20 03:00 12/02/20 03:01 DC 12/02/20 03:02 10 MG Allergies Allergies Allergies Coded Allergies Type Severity Reaction Last Updated Verified buspirone Allergy Intermediate Hives 09/24/20 Yes clonazepam Allergy Intermediate Hives 09/24/20 Yes metoclopramide Allergy Intermediate 09/24/20 Yes metoprolol Allergy Intermediate Hives 09/24/20 Yes propranolol Allergy Intermediate Hives 09/24/20 Yes venlafaxine Allergy Intermediate Hives 09/24/20 Yes Physical Exam Physical Exam Constitutional: Well developed, well nourished, no acute distress, non-toxic a ppearance. [] HENT: Normocephalic, atraumatic, Eyes: PERRLA, EOMI, conjunctiva normal, no discharge. [] Neck: Normal range of motion, no tenderness, supple, no stridor. [] Cardiovascular:Heart rate regular rhythm, no murmur [] Lungs & Thorax: Bilateral breath sounds clear to auscultation [] Skin: Warm, dry, no erythema, no rash. [] Back: No tenderness, Extremities: No tenderness, no cyanosis, no clubbing, ROM intact, no edema. [] Neurologic: Alert and oriented X 3, normal motor function, normal sensory function, able to sit, stand and walk without issue, no focal deficits noted. [] Psychologic: Affect normal, judgement normal, mood normal. [] Current Patient Data Vital Signs Vital Signs Date Time Temp Pulse Resp B/P (MAP) Pulse Ox O2 Delivery O2 Flow Rate FiO2 12/02/20 02:52 97.9 88 18 117/81 99 Room Air EKG EKG [] Radiology/Procedures Radiology/Procedures [] Heart Score C/O Chest Pain: No Risk Factors: Risk Factors: DM, Current or recent (<one month) smoker, HTN, HLP, family history of CAD, obesity. Risk Scores: Risk Factors: DM, Current or recent (<one month) smoker, HTN, HLP, family history of CAD, obesity. Course & Med Decision Making Course & Med Decision Making Patient is a 30-year-old female who presents with a chief complaint of migraine Vital signs not concerning. Physical exam noted above. Given migraine cocktail. On reassessment patient feeling better and ready to discharge home. Discussed symptom management at home. Advised to call primary care physician and neurologist Thursday morning to update on ED visit. Gave return precautions to the ED. Patient very grateful, verbalized understanding and agreed with plan of discharge. [] Dragon Disclaimer Dragon Disclaimer This electronic medical record was generated, in whole or in part, using a voice recognition dictation system. Departure Departure: Impression: Primary Impression: Migraine Disposition: HOME / SELF CARE / HOMELESS Condition: GOOD Referrals: ASTER PHELPS MD (PCP) Patient Instructions: Recurrent Migraine Headache Additional Instructions: Thank you for coming into the emergency department tonight and allowing us to take care of you. Please read the attached information very carefully to go back over things we discussed. As discussed you can use Tylenol, ibuprofen and Benadryl as discussed. Please call your primary care physician and neurologist on Thursday to update on ED visit and set up follow-up visits. Please come back to the ED with new or concerning symptoms as discussed. LUPILLO DUOBN MD Dec 02, 2020 03:29
== END 2020-12-02 03:44 | disposition home or self-care (01) ==
LOC: ER 02:41
DX: G43.909 Migraine, unspecified, not intractable, without status migrainosus (principal); F41.9 Anxiety disorder, unspecified; J45.909 Unspecified asthma, uncomplicated; K21.9 Gastro-esophageal reflux disease without esophagitis; E78.00 Pure hypercholesterolemia, unspecified; E03.9 Hypothyroidism, unspecified; K58.9 Irritable bowel syndrome, unspecified; Z88.8 Allergy status to other drugs, medicaments and biological substances
CPT/HCPCS: 96372; 99284; J0780; J1885; Q0162; Q0163

== ENCOUNTER 2020-12-19 20:11 | Emergency (ER) | payer OTHER ==
[~2020-12-19] VITALS: Ht 167.6 cm; Wt 94.9 kg
[2020-12-19 20:11] VITALS: BP 116/77
--- NOTE | 2020-12-19 20:41 | PHYS DOC ---
Past History Past Medical History: Anxiety, Asthma, GERD, High Cholesterol, Hypothyroid, IBS, Migraines, Other Additional Past Medical Histor: PCOS, SOFI'S Past Surgical History: Other Additional Past Surgical Histo: DENTAL Alcohol Use: None General Adult EDM: Chief Complaint: MULTIPLE COMPLAINTS HPI: HPI: 30-year-old female presents with left lower leg swelling greater than right. Patient fell down the stairs within the last week. Today she started to feel like she had a burning pain in her left lower leg. She is concerned that it appears more swollen than the right leg. She is very worried about having a blood clot. She tells me this is one of her greatest fears in life. The patient was in the emergency room earlier today but she left without being seen. She tried to call her doctor to schedule an ultrasound but they could not do it until next week. The patient thought she could wait that while she was at home and it feels like the pain has gotten worse so she came back to the emergency room. She admits to some shortness of breath but then says that she thinks this could be due to her anxiety about the blood clot. She told the nurse that she has had a new cough and shortness of breath the last 2 days. [] Review of Systems: Review of Systems: Constitutional: Denies fever or chills Eyes: Denies change in visual acuity HENT: Denies nasal congestion or sore throat Respiratory: Cough with shortness of breath Cardiovascular: Denies chest pain or edema GI: Denies abdominal pain, nausea, vomiting, bloody stools or diarrhea : Denies dysuria Musculoskeletal: Left lower leg swelling Integument: Denies rash Neurologic: Denies headache, focal weakness or sensory changes Endocrine: Denies polyuria or polydipsia Lymphatic: Denies swollen glands Psychiatric: Denies depression or anxiety Allergies: Allergies: Allergies Coded Allergies Type Severity Reaction Last Updated Verified buspirone Allergy Intermediate Hives 09/24/20 Yes clonazepam Allergy Intermediate Hives 09/24/20 Yes metoclopramide Allergy Intermediate 09/24/20 Yes metoprolol Allergy Intermediate Hives 09/24/20 Yes propranolol Allergy Intermediate Hives 09/24/20 Yes venlafaxine Allergy Intermediate Hives 09/24/20 Yes Physical Exam: PE: Constitutional: Well developed, well nourished, no acute distress, non-toxic appearance. [] HENT: Normocephalic, atraumatic, bilateral external ears normal, oropharynx moist, no oral exudates, nose normal. [] Eyes: PERRLA, EOMI, conjunctiva normal, no discharge. [] Neck: Normal range of motion, no tenderness, supple, no stridor. [] Cardiovascular: Heart rate regular rhythm, no murmur [] Lungs & Thorax: Bilateral breath sounds clear to auscultation [] Abdomen: Bowel sounds normal, soft, no tenderness, no masses, no pulsatile masses. [] Skin: Warm, dry, no erythema, no rash. [] Back: No tenderness, no CVA tenderness. [] Extremities: Left lower leg greater diameter than right, soft, no obvious trauma or infection. [] Neurologic: Alert and oriented X 3, normal motor function, normal sensory function, no focal deficits noted. [] Psychologic: Affect normal, judgement normal, mood anxious. [] EKG: EKG: [] Radiology/Procedures: Radiology/Procedures: [] Impressions: STUDY: US DPLX VENOUS EXTREMITY LOWER LT INDICATION: Swelling, trauma a few days ago. Rule out DVT. TECHNIQUE: Color-flow and pulsed wave duplex ultrasound with compression of venous structures of the left lower extremity. COMPARISON: None Available. FINDINGS: Duplex ultrasound with compression of the deep venous structures of the left lower extremity from the common femoral vein through the popliteal vein is negative for DVT. The posterior tibial and peroneal veins are segmentally visualized and patent wh ere seen. Normal venous waveforms and augmentation are noted throughout. IMPRESSION: No deep venous thrombosis of the left lower extremity. Electronically signed by: Dustin Easton MD (12/19/2020 9:21 PM) [facility] DICTATED AND SIGNED BY: DUSTIN EASTON MD DATE: 12/19/202119 CC: GAURAV DURÁN DO; MADY ROCHA MD ~MTH0 0 Heart Score: C/O Chest Pain: N/A Risk Factors: Risk Factors: DM, Current or recent (<one month) smoker, HTN, HLP, family history of CAD, obesity. Risk Scores: Score 0 - 3: 2.5% MACE over next 6 weeks - Discharge Home Score 4 - 6: 20.3% MACE over next 6 weeks - Admit for Clinical Observation Score 7 - 10: 72.7% MACE over next 6 weeks - Early Invasive Strategies Course & Med Decision Making: Course & Med Decision Making Pertinent Labs and Imaging studies reviewed. (See chart for details) The patient ultrasound is negative for DVT. She is stable for discharge at this time. [] Dragon Disclaimer: Dragon Disclaimer: This electronic medical record was generated, in whole or in part, using a voice recognition dictation system. Departure Departure: Impression: Primary Impression: Swelling of lower leg Disposition: HOME / SELF CARE / HOMELESS Condition: STABLE Referrals: MADY ROCHA MD (PCP) GAURAV DURÁN DO Dec 19, 2020 20:41
--- NOTE | 2020-12-19 21:23 | RAD ---
STUDY: US DPLX VENOUS EXTREMITY LOWER LT INDICATION: Swelling, trauma a few days ago. Rule out DVT. TECHNIQUE: Color-flow and pulsed wave duplex ultrasound with compression of venous structures of the left lower extremity. COMPARISON: None Available. FINDINGS: Duplex ultrasound with compression of the deep venous structures of the left lower extremity from the common femoral vein through the popliteal vein is negative for DVT. The posterior tibial and peroneal veins are segmentally visualized and patent where seen. Normal veno us waveforms and augmentation are noted throughout. IMPRESSION: No deep venous thrombosis of the left lower extremity. Electronically signed by: Dustin Easton MD (12/19/2020 9:21 PM) [facility]
== END 2020-12-19 22:08 | disposition home or self-care (01) ==
LOC: ER 20:11
DX: R22.41 Localized swelling, mass and lump, right lower limb (principal); M79.662 Pain in left lower leg; R06.02 Shortness of breath; J45.909 Unspecified asthma, uncomplicated; K21.9 Gastro-esophageal reflux disease without esophagitis; E78.00 Pure hypercholesterolemia, unspecified; E03.9 Hypothyroidism, unspecified; K58.9 Irritable bowel syndrome, unspecified; G43.909 Migraine, unspecified, not intractable, without status migrainosus; Z20.822 Contact with and (suspected) exposure to COVID-19; Z88.8 Allergy status to other drugs, medicaments and biological substances; W10.8XXA Fall (on) (from) other stairs and steps, initial encounter; Y93.89 Activity, other specified; Y92.89 Other specified places as the place of occurrence of the external cause; Y99.8 Other external cause status
CPT/HCPCS: 93971; 99284; C9803; U0003

== ENCOUNTER → 2020-12-19 | Emergency (ER) | payer OTHER ==
[2020-12-02 02:52] VITALS: BP 117/81
== END | disposition left against medical advice (07) ==
LOC: ER 13:30
DX: R22.40 Localized swelling, mass and lump, unspecified lower limb (principal); Z53.21 Procedure and treatment not carried out due to patient leaving prior to being seen by health care provider

== ENCOUNTER 2021-01-13 00:03 | Emergency (ER) | payer OTHER ==
[~2021-01-13] VITALS: Ht 167.6 cm; Wt 95.4 kg
--- NOTE | 2021-01-13 00:08 | PHYS DOC ---
Past History Past Medical History: Anxiety, Asthma, GERD, High Cholesterol, Hypothyroid, IBS, Migraines, Other Additional Past Medical Histor: PCOS, SOFI'S Past Surgical History: Other Additional Past Surgical Histo: DENTAL Alcohol Use: None Adult General Chief Complaint Chief Complaint: HEADACHE HPI HPI Patient is a 30-year-old female with a past medical history significant for migraines who presents with migraine. States she has had this migraine for about 3 to 4 weeks, right-sided, dull achy in nature, about 6 out of 10 at its worst and 3 out of 10 at its best. States she takes medicine and intermittently gets a little better but then comes back. States she had a bout of sinusitis that was treated around the same time this started and has had some nasal congestion since then. Denies any recent traumas or travels, illnesses, fevers, neck pain, chest pain, shortness of breath, abdominal pain, nausea, vomiting. Denies any numbness/weakness/tingling. Denies any trouble sitting, standing or walking. Review of Systems Review of Systems Review of systems otherwise unremarkable except noted in HPI Allergies Allergies Allergies Coded Allergies Type Severity Reaction Last Updated Verified buspirone Allergy Intermediate Hives 09/24/20 Yes clonazepam Allergy Intermediate [facility] 09/24/20 Yes metoclopramide Allergy Intermediate 09/24/20 Yes metoprolol Allergy Intermediate [facility] 09/24/20 Yes propranolol Allergy Intermediate [facility] 09/24/20 Yes venlafaxine Allergy Intermediate [facility] 09/24/20 Yes Physical Exam Physical Exam Constitutional: Well developed, well nourished, no acute distress, non-toxic appearance. [] HENT: Normocephalic, atraumatic, bilateral external ears normal, oropharynx moist, no oral exudates, nose normal. [] Eyes: PERRLA, EOMI, conjunctiva normal, no discharge. [] Neck: Normal range of motion, no tenderness, supple, no stridor. [] Cardiovascular:Heart rate regular rhythm, no murmur [] Lungs & Thorax: Bilateral breath sounds clear to auscultation [] Abdomen:soft, no tenderness, no masses, no pulsatile masses. [] Skin: Warm, dry, no erythema, no rash. [] Back: No tenderness, no CVA tenderness. [] Extremities: No tenderness, no cyanosis, no clubbing, ROM intact, no edema. [] Neurologic: Alert and oriented X 3, normal motor function, normal sensory function, able to sit, stand and walk without issue, cranial nerves normal, no focal deficits noted. [] Psychologic: Affect normal, judgement normal, mood normal. [] EKG EKG [] Radiology/Procedures Radiology/Procedures [] CT angiogram of the head and neck with contrast: Reason for examination: Headache for month. Concern for venous thrombosis. Comparison is made to previous study dated 08/17/2020. Helical images were obtained through the head and neck with intravenous admini stration of 75 cc Omnipaque 350 using angiographic protocol. 3-D MIPS reconstruction was performed in sagittal and coronal planes and volume rendered images were obtained. Delayed images were obtained. Exposure: One or more of the following individualized dose reduction techniques were utilized for this examination: 1. Automated exposure control 2. Adjustment of the mA and/or kV according to patient size 3. Use of iterative reconstruction technique. The intracranial carotid arteries are patent with no stenosis or occlusion. There is normal bifurcation into their respective anterior and middle cerebral arteries with no stenoses or occlusions evident. The intracranial vertebral arteries are patent to the basilar artery with no stenosis or occlusions evide nt. The posterior cerebral and superior cerebellar arteries show good vascular flow bilaterally there is also a patent right and left posterior communicating arteries. No aneurysms or arteriovenous malformations are seen. Dural sinuses and cerebral veins appear to be patent with no thrombosis evident. The thoracic aortic arch shows no aneurysmal dilatation or dissection. There is normal origin of the right brachiocephalic artery, left common carotid artery and left subclavian arteries from the arch with no stenoses. The vertebral arteries bilaterally arise from their respective subclavian arteries. The right is larger than the left but both are patent to the basilar artery. The right common carotid artery, internal carotid artery and external carotid artery show no stenoses or occlusions. The left common carotid artery, left internal carotid artery and left external carotid arteries also show no stenosis or occlusions. Jugular veins are patent. No abnormality seen at the thyroid gland, trachea or esophagus. Lung apices are clear. The parotid and submandibular gland show no acute abnormalities. Muscular bundles are symmetric. No acute abnormalities evident at the cervical spine. IMPRESSION: No acute vascular abnormalities in the head or neck. No venous sinus thrombosis evident. Electronically signed by: Phyllis Aparicio MD (01/13/2021 3:18 AM) [facility] Heart Score C/O Chest Pain: No Risk Factors: Risk Factors: DM, Current or recent (<one month) smoker, HTN, HLP, family history of CAD, obesity. Risk Scores: Risk Factors: DM, Current or recent (<one month) smoker, HTN, HLP, family history of CAD, obesity. Course & Med Decision Making Course & Med Decision Making Patient is a 30-year-old female who presents with a chief complaint of month- long migraine Vital signs notable for sinus tachycardia. Physical exam noted above. Patient placed on the monitor with IV access established and IV fluid given. Started with Toradol and Zofran, as patient drove. Dragon Disclaimer Dragon Disclaimer This electronic medical record was generated, in whole or in part, using a voice recognition dictation system. Departure Departure: Impression: Primary Impression: Migraine Disposition: HOME / SELF CARE / HOMELESS Condition: GOOD Referrals: MADY ROCHA MD (PCP) Patient Instructions: Migraine Headache, Recurrent Migraine Headache Additional Instructions: Thank you for coming into the emergency department tonight and allowing us to take care of you. Please read the attached information carefully go back over some of the things we discussed. Please follow-up as soon as you can on Thursday with your primary care physician and your neurologist to let them know that you were here and you had a CAT scan of your head that was normal. Please come back to the ED with new or concerning symptoms as discussed. LUPILLO DUBON MD Jan 13, 2021 00:08
[2021-01-13] MEDS ORDERED: diphenhydrAMINE 50 MG/ML VIAL IVP ONE (00:15)
[2021-01-13] MEDS ORDERED: KETOROLAC 15 MG/ML VIAL. IVP ONE (00:15)
[2021-01-13] MEDS ORDERED: PROCHLORPERAZINE 10 MG/2 ML VIAL. IV ONE (00:15)
[2021-01-13] MEDS ORDERED: ONDANSETRON PF 4 MG/2 ML VIAL. IVP ONE (00:15)
[2021-01-13] MEDS ORDERED: IV RINGERS SOLUTION,LACTATED 1,000 ML IV ONE (01:00)
[2021-01-13] MEDS ORDERED: CONTRAST GIVEN. MC PRN (01:00)
[2021-01-13] MEDS ORDERED: IOHEXOL 350 MG/ML 100 ML VIAL. IV ONE (01:00)
[2021-01-13] MEDS ORDERED: oxyCODONE/APAP 5/325 1 TAB TABLET PO ONE (03:00)
[2021-01-13] MEDS ORDERED: diphenhydrAMINE HCL 25 MG CAPSULE PO ONE (03:00)
--- NOTE | 2021-01-13 03:20 | RAD ---
CT angiogram of the head and neck with contrast: Reason for examination: Headache for month. Concern for venous thrombosis. Comparison is made to previous study dated 08/17/2020. Helical images were obtained through the head and neck with intravenous administration of 75 cc Omnip aque 350 using angiographic protocol. 3-D MIPS reconstruction was performed in sagittal and coronal p lanes and volume rendered images were obtained. Delayed images were obtained. Exposure: One or more of the following individualized dose reduction techniques were utilized for thi s examination: 1. Automated exposure control 2. Adjustment of the mA and/or kV according to patient size 3. Use of iterative reconstruction technique. The intracranial carotid arteries are patent with no stenosis or occlusion. There is normal bifurcati on into their respective anterior and middle cerebral arteries with no stenoses or occlusions evident . The intracranial vertebral arteries are patent to the basilar artery with no stenosis or occlusions evident. The posterior cerebral and superior cerebellar arteries show good vascular flow bilaterally there is also a patent right and left posterior communicating arteries. No aneurysms or arteriovenou s malformations are seen. Dural sinuses and cerebral veins appear to be patent with no thrombosis karma dent. The thoracic aortic arch shows no aneurysmal dilatation or dissection. There is normal origin of the right brachiocephalic artery, left common carotid artery and left subclavian arteries from the arch w ith no stenoses. The vertebral arteries bilaterally arise from their respective subclavian arteries. The right is larger than the left but both are patent to the basilar artery. The right common carotid artery, internal carotid artery and external carotid artery show no stenoses or occlusions. The left common carotid artery, left internal carotid artery and left external carotid arteries also show no stenosis or occlusions. Jugular veins are patent. No abnormality seen at the thyroid gland, trachea or esophagus. Lung apices are clear. The parotid an d submandibular gland show no acute abnormalities. Muscular bundles are symmetric. No acute abnormali ties evident at the cervical spine. IMPRESSION: No acute vascular abnormalities in the head or neck. No venous sinus thrombosis evident. Electronically signed by: Phyllis Aparicio MD (01/13/2021 3:18 AM) [facility]
[2021-01-13 04:10] VITALS: BP 110/50
== END 2021-01-13 04:16 | disposition home or self-care (01) ==
LOC: ER 00:03
DX: G43.909 Migraine, unspecified, not intractable, without status migrainosus (principal); J45.909 Unspecified asthma, uncomplicated; K21.9 Gastro-esophageal reflux disease without esophagitis; E78.5 Hyperlipidemia, unspecified; Z88.6 Allergy status to analgesic agent; Z88.8 Allergy status to other drugs, medicaments and biological substances
CPT/HCPCS: 70496; 70498; 81025; 96361; 96374; 96375; 99285; J1885; J2405; J7120; Q0163